=== PATIENT | female | born 1970 | race Caucasian/White ===

== ENCOUNTER 2020-10-04 01:01 | Emergency (ER) | payer OTHER ==
[~2020-10-04] VITALS: Ht 157.5 cm; Wt 61.2 kg
[~2020-10-04 01:01] MED LIST: INHALER INH; PREDNISONE 20 M20 MG PO; SPACERADULT INH; VENTOLIN HFA 1818 GM INH
[2020-10-04 01:47] LABS: ABSOLUTE BASOPHILS 0.1 thou/uL (0.0-0.2); ABSOLUTE EOSINOPHILS 0.1 thou/uL (0.0-0.7); ABSOLUTE LYMPHOCYTES 3.1 thou/uL (0.8-5.3); ABSOLUTE MONOCYTES 0.9 thou/uL (0.0-1.2); ABSOLUTE NEUTROPHILS 9.8 thou/uL (1.6-8.1); BASOPHILS 0.7 %; HEMATOCRIT 44.2 % (37.0-47.0); HEMOGLOBIN 15.1 gm/dL (12.0-15.0); LYMPHOCYTES 21.9 %; MCH 32.7 pg (26.0-34.0); MCHC 34.1 g/dL (28.0-37.0); MCV 95.9 fL (80.0-100.0); MONOCYTES 6.7 %; MPV 7.8 fl. (7.2-11.1); NUCLEATED RBCS 0 /100WBC; PLATELET COUNT* 286 thou/uL (150-400); POLYS 69.7 %; RBC 4.61 mil/uL (4.20-5.00); RDW-CV 12.9 % (10.5-14.5)
[2020-10-04 01:48] LABS: URINE BILIRUBIN NEGATIVE (Negative); URINE BLOOD 3+ (Negative); URINE CLARITY CLEAR; URINE COLOR YELLOW; URINE GLUCOSE-RANDOM NEGATIVE (Negative); URINE KETONES NEGATIVE (Negative); URINE LEUKOCYTES-REFLEX NEGATIVE (Negative); URINE NITRITE-REFLEX NEGATIVE (Negative); URINE PROTEIN NEGATIVE (Negative); URINE UROBILINOGEN 0.2 E.U./dl (0.2-1.0)
[2020-10-04 01:51] LABS: CREATININE 0.8 mg/dL (0.6-1.3)
[2020-10-04 01:55] LABS: AMP/METHAMP Negative (Negative); BARBITURATES Negative (Negative); BENZODIAZEPINES Negative (Negative); COCAINE Negative (Negative); METHADONE Negative (Negative); OPIATES Negative (Negative); PCP Negative (Negative); THC Negative (Negative)
[2020-10-04 01:56] LABS: ALBUMIN 3.7 g/dL (3.4-5.0); TOTAL BILIRUBIN 0.3 mg/dL (<0.1-1.0); TOTAL PROTEIN 7.1 g/dL (6.4-8.2)
[2020-10-04 02:17] LABS: SQUAMOUS 0-3 Few /LPF (0-3)
[2020-10-04 02:18] LABS: CASTS None Seen /LPF (None Seen)
[2020-10-04 02:19] LABS: BACTERIA-REFLEX 1-9 Few /HPF (None Seen); CRYSTALS None Seen /LPF (None Seen); URINE RBC 3-10 Few /HPF (0-2); URINE WBC-REFLEX 0-5 Rare /HPF (0-5)
[2020-10-04 02:52] VITALS: BP 115/82
--- NOTE | 2020-10-04 10:40 | EKG ---
[place] [address] ELECTROCARDIOGRAM REPORT Name: CORY MCDONALD Room: [facility]#: [id number] Admission: 10/04/20 Attend Phys: Discharge: 10/04/20 Date of : 72 Date of Service: 10/04/20 0108 Report #: [id number] THIS REPORT FOR: //name// [facility] Test Date: 2020-10-04 Test Time: 01:08:34 Pat Name: CORY MCDONALD Department: Room: Gender: Contact [employer] Operator: : 1970 Requested By: Bambi Pearl Order Number: [id number] MD: Seth Reyes Measurements Intervals [place] Rate: 95 P: 61 [place]: 165 QRS: 64 QRSD: 68 T: 38 QT: 348 QTc: 438 Interpretive Statements Sinus rhythm Probable left atrial enlargement Consider anterior infarct Baseline wander in lead(s) V2,V6 No previous ECG available for comparison Electronically Signed On 10-04-2020 10:39:52 [employer] ROOM CUSTODIAN by Seth Reyes [email or web address] <ELECTRONICALLY SIGNED> By: Seth Reyes MD, [facility] 10/04/20 1039 0108 0108 Seth Reyes MD, [facility] /EPI
== END 2020-10-04 02:54 | disposition home or self-care (01) ==
LOC: M.ERS 01:01
PROVIDERS: Personal Emergency Response Attendant
DX: F10.129 Alcohol abuse with intoxication, unspecified (principal); Y90.6 Blood alcohol level of 120-199 mg/100 ml; R55 Syncope and collapse; J45.909 Unspecified asthma, uncomplicated; F17.210 Nicotine dependence, cigarettes, uncomplicated